=== PATIENT | female | born 1975 | race Two or more races ===

== ENCOUNTER → 2016-12-08 | Outpatient (CLI) | payer OTHER ==
[2016-12-12 16:05] LABS: HPV 16 Not Detected (NOTDET); HPV 18 Not Detected (NOTDET)
== END ==
LOC: MW.CHOBGYN 10:40
PROVIDERS: ATTEND Nurse Practitioner Women's Health
DX: Z12.4 Encounter for screening for malignant neoplasm of cervix (principal)
CPT/HCPCS: 87624; G0145

== ENCOUNTER → 2016-12-10 | Outpatient (CLI) | payer OTHER ==
--- NOTE | 2016-12-23 13:40 | MY ---
EXAMINATION: Bilateral digital mammography utilizing CAD. HISTORY: Screening exam. No comparisons made available. FINDINGS: Bilateral heterogeneously dense breast tissue. No suspicious calcifications, masses or ar chitectural distortions. No pathologic appearing lymph nodes, no abnormal skin thickening or nippl e inversion. CAD highlighted regions appear normal at this time. IMPRESSION: BI-RADS category I - negative mammogram. Continued screening according to ACR-ACS gu idelines suggested. THE FALSE-NEGATIVE RATE OF MAMMOGRAM IS APPROXIMATELY 10%. MANAGEMENT OF A PALPABLE ABNORMALITY MUST BE BASED UPON CLINICAL GROUNDS. SENSITIVITY FOR DETECTION OF ABNORMALITIES IN DENSE BREASTS IS LOW. NOTE: A letter will be sent to the patient regarding findings. [facility] -- [employer] [phone] - FAX [phone]
== END ==
LOC: MW.MAM 09:58
PROVIDERS: ATTEND Nurse Practitioner Women's Health
DX: Z12.31 Encounter for screening mammogram for malignant neoplasm of breast (principal)
CPT/HCPCS: G0202; G0202-26

== ENCOUNTER → 2016-12-15 | Outpatient (CLI) | payer OTHER ==
[2016-12-15 09:08] LABS: CHLORIDE,CL 108 mmol/L (98-110); SODIUM,NA 141 mmol/L (136-146)
== END ==
LOC: MW.CHIM 08:26
PROVIDERS: ATTEND Internal Medicine
DX: R53.83 Other fatigue (principal)
CPT/HCPCS: 36415; 80053; 80061; 84443; 85025

== ENCOUNTER → 2016-12-30 | Outpatient (CLI) | payer OTHER | END | disposition home or self-care (01) | LOC: MW.CHIM 09:15 | PROVIDERS: ATTEND Internal Medicine | DX: R00.2 Palpitations (principal) | CPT/HCPCS: 93005 ==

== ENCOUNTER → 2017-01-20 | Outpatient (CLI) | payer OTHER ==
--- NOTE | 2017-01-21 14:20 | ECHO ---
EXAM DATE: 01/20/17 The echocardiogram report can be seen in this patient's EMR (Electronic Medical Record) in the Reports section. BERTHA
== END | disposition home or self-care (01) ==
LOC: MW.US 12:57
PROVIDERS: ATTEND Internal Medicine
DX: R00.2 Palpitations (principal)
CPT/HCPCS: 93270; 93306

== ENCOUNTER 2018-10-12 07:52 | Inpatient (IN) | payer OTHER ==
[2018-10-12] MEDS ORDERED: Sodium Chloride 0.9% 2.5 ML Syringe FLUSH PRN ×2 (10:29→14:26)
[2018-10-12] MEDS ORDERED: Sodium Chloride 0.9% 10 ML Syringe FLUSH PRN ×2 (10:29→14:26)
[2018-10-12] MEDS ORDERED: Lactated Ringers 1,000 ML IV SCH ×2 (10:30→14:30)
[2018-10-12] MEDS ORDERED: Oxytocin/0.9 % Sodium Chloride 30 UNIT/500 ML BAG IV SCH (10:30)
--- NOTE | 2018-10-12 11:00 | PCM.PREANE ---
Preanesthetic Assessment - Anesthesia/Transfusion/Family Hx Anesthesia History: Prior Anesthesia Without Reaction Family History of Anesthesia Reaction: No Transfusion History: No Prior Transfusion(s) - Review of Systems General: No Symptoms Pulmonary: No Symptoms Cardiovascular: No Symptoms Gastrointestinal: No Symptoms Neurological: No Symptoms Other: Reports: None - Physical Assessment Height: 5 ft 2 in Weight: 80.739 kg ASA Class: 2 Mental Status: Alert & Oriented x3 Airway Class: Mallampati = 2 Dentition: Reports: Normal Dentition Thyro-Mental Finger Breadths: 3 Mouth Opening Finger Breadths: 3 ROM/Head Extension: Full Lungs: Clear to Auscultation, Normal Respiratory Effort Cardiovascular: Regular Rate, Regular Rhythm - Allergies Allergies/Adverse Reactions: Allergies Allergy/AdvReac Type Severity Reaction Status Date / Time animal dander Allergy Sneezing Verified 10/11/18 09:27 latex Allergy "latex Verified 10/11/18 09:27 sensitive" pollen extracts Allergy Sneezing Verified 10/11/18 09:27 - Acknowledgements Anesthesia Type Planned: General Anesthesia, Spinal (Duramorph) Pt an Appropriate Candidate for the Planned Anesthesia: Yes Alternatives and Risks of Anesthesia Discussed w Pt/Guardian: Yes Pt/Guardian Understands and Agrees with Anesthesia Plan: Yes PreAnesthesia Questionnaire HEENT History: Reports: None Cardiovascular History: Reports: Arrhythmia, Other (See Below) Other Cardiovascular History: patient states "I have an extra heartbeat sometimes." Pt states she had a holter monitor test done for 30 days that yielded no additional interventions or Rx Respiratory History: Reports: None Gastrointestinal History: Reports: GERD Genitourinary History: Reports: None COMM[employer] History: Reports: : 2 Para: 1 LMP (Approximate): Musculoskeletal History: Reports: None Neurological History: Reports: None Psychiatric History: Reports: None Endocrine/Metabolic History: Reports: Obesity/BMI 30+ Hematologic History: Reports: None Immunologic History: Reports: None Oncologic (Cancer) History: Reports: None Dermatologic History: Reports: None - Infectious Disease History Infectious Disease History: Reports: None - Past Surgical History Cardiovascular Surgical History: Reports: None Female Surgical History: Reports: Section - SUBSTANCE USE Smoking Status *Q: Never Smoker Recreational Drug Use History: Yes - HOME MEDS Home Medications: Home Meds Iron 67 mg PO DAILY 10/11/18 [History] PNV95/Ferrous Fumarate/FA [ Vitamin Tablet] 1 tab PO DAILY 10/11/18 [ History] - CURRENT (IN HOUSE) MEDS Current Meds: Current Medications Citric Acid/Sodium Citrate (Bicitra Solution) 30 ml PO ONETIME ONE Stop: 10/12/18 12:01 Oxytocin/Sodium Chloride (Oxytocin 30 Unit/500 Ml-Ns) 30 unit in 500 mls @ 250 mls/hr IV TITRATE BHARAT Lactated Ringer's (Ringers, Lactated) 1,000 mls @ 500 mls/hr IV BOLUS BHARAT Cefazolin Sodium/Dextrose 2 gm (/ Premix) 50 mls @ 100 mls/hr IV ONETIME ONE Stop: 10/12/18 12:29 Sodium Chloride (Saline Flush) 10 ml FLUSH ASDIRECTED PRN PRN Reason: Keep Vein Open Sodium Chloride (Saline Flush) 2.5 ml FLUSH ASDIRECTED PRN PRN Reason: Keep Vein Open
[2018-10-12] MEDS ORDERED: Citric Acid/Sodium Citrate Solution 30 ML Cup PO ONE (12:00)
[2018-10-12] MEDS ORDERED: ceFAZolin 2 GM in Premix Bag 1 BAG IV ONE (12:00)
[2018-10-12] MEDS ORDERED: Morphine PF 10 MG/10 ML SDV ONE (12:37)
[2018-10-12] MEDS ORDERED: ceFAZolin/Dextrose,Iso-Osmotic 2 GM/50 ML Duplex Bag IV ONE (13:25)
[2018-10-12] MEDS ORDERED: Oxytocin 10 Units/1 ML SDV ONE (13:44)
[2018-10-12] MEDS ORDERED: Phenylephrine/Normal Saline 100 MCG/ML 10 ML Syringe ONE (13:55)
[2018-10-12] MEDS ORDERED: Dexamethasone 4 MG/ML 5 ML MDV ONE (13:59)
[2018-10-12] MEDS ORDERED: Ondansetron 4 MG/2 ML SDV ONE (13:59)
[2018-10-12] MEDS ORDERED: Ketorolac 30 MG/ML SDV ONE (13:59)
[2018-10-12] MEDS ORDERED: diphenhydrAMINE 50 MG/ML SDV IVPUSH PRN ×2 (14:12→14:26)
[2018-10-12] MEDS ORDERED: Naloxone 0.4 MG/ML Syringe IVPUSH PRN (14:12)
[2018-10-12] MEDS ORDERED: Ondansetron 4 MG/2 ML SDV IVPUSH PRN (14:26)
[2018-10-12] MEDS ORDERED: Acetaminophen/oxyCODONE 325-5 MG Tab PO PRN ×2 (14:26)
[2018-10-12] MEDS ORDERED: Ibuprofen 800 MG Tab PO PRN (14:26)
[2018-10-12] MEDS ORDERED: Lanolin 100% Cream 7 GM Tube TOP PRN (14:26)
[2018-10-12] MEDS ORDERED: Bisacodyl 10 MG Supp RECTAL PRN (14:26)
--- NOTE | 2018-10-12 14:33 | PCM.OPNOTE ---
- General Post-Op/Procedure Note Date of Surgery/Procedure: 10/12/18 Operative Procedure(s): Repeat section Findings: Male , Wt 3720grans, Apgars 8 and 9. Grossly normal placenta with 3 vessel cord. Normal appearing uterus, tubes and ovaries. Normal pelvis Pre Op Diagnosis: 38.6 weeks. Early labor. Previous , declined Post-Op Diagnosis: Same Anesthesia Technique: Spinal Primary Surgeon: Leona Swift Fluid Replacement, Intraop: 1,800 Output, Urine Amount: 150 EBL in mLs: 600 Complications: None Condition: Good
--- NOTE | 2018-10-12 14:49 | PCM.POSTAN ---
POST ANESTHESIA ASSESSMENT - MENTAL STATUS Mental Status: Alert, Oriented - RESPIRATORY Respiratory Status: Respiratory Rate WNL, Airway Patent, O2 Saturation Stable - CARDIOVASCULAR CV Status: Pulse Rate WNL, Blood Pressure Stable - GASTROINTESTINAL GI Status: No Symptoms - POST OP HYDRATION Hydration Status: Adequate & Stable
--- NOTE | 2018-10-12 17:12 | OR ---
SURGEON: Leona Swift MD DATE OF PROCEDURE: 10/12/2018 PREOPERATIVE DIAGNOSES: 1. Term at 38 weeks and 6 days gestation. 2. Spontaneous labor. 3. Prior section, declined vaginal after caesarean section. POSTOPERATIVE DIAGNOSES: 1. Term at 38 weeks and 6 days gestation. 2. Spontaneous labor. 3. Prior section, declined vaginal after caesarean section. 4. Delivered. PROCEDURE: Repeat low-transverse section via Pfannenstiel. ANESTHESIA: Spinal. ESTIMATED BLOOD LOSS: 600 mL. IV FLUIDS: 1800 mL of crystalloid. URINE OUTPUT: 150 mL clear at the end of the procedure. COMPLICATIONS: None. CONDITION: Stable to recovery room. FINDINGS: Male infant, clear amniotic fluid, no nuchal cord. Weight 3720 g, scores of 8 and 9 at 1 and 5 minutes respectively. Grossly normal-looking uterus, tubes, and ovaries. Grossly normal placenta with three-vessel cord. Minimal pelvic adhesions visualized. INDICATION: Vale is a 43-year-old G2, P1-0-0-1 who was admitted today in early spontaneous labor. The patient has a history of one previous section and had declined a trial of labor after section, so we proceeded with a repeat . She was 3 cm dilated, 100% effaced with a bulging membrane with category 1 strip. DESCRIPTION OF PROCEDURE: The patient was taken to the operating room where spinal anesthesia was performed and found to be adequate. She received 2 g of Ancef. SCDs were in place. She was then prepped and draped in the usual sterile fashion in dorsal supine position with a leftward tilt. An appropriate time-out was held. A Pfannenstiel skin incision was made along her old incision and was carried through to the underlying fascia with the Bovie. The fascia was then scored in the midline and the incision was extended laterally with the Bovie. The superior aspect of the fascial incision was grasped with Óscar clamps, elevated, and underlying rectus muscles were dissected off with the Bovie. Attention was then turned to the inferior aspect of the incision, which in similar fashion was grasped and tented up with Óscar clamps, and the rectus muscle was dissected off with the Bovie. The rectus muscle was then in the midline carefully until the parietal peritoneum was reached. This was then entered bluntly and a careful digital sweep underneath the parietal peritoneum revealed no adhesions. The incision was then extended upwards and downwards with good visualization of the bladder and other organs by both blunt and sharp dissection. It was then further extended laterally by stretching. An Mendel O retractor was then inserted into the abdominal cavity. The vesicouterine peritoneum was identified, picked up, and entered sharply with Metzenbaum scissors, and then extended laterally creating a bladder flap digitally. The lower uterine segment was then incised in a transverse fashion with the scalpel and extended upwards and downwards bluntly. The infant's head was then delivered atraumatically followed by the rest of the body. The baby was vigorous and cried spontaneously at . The cord was double clamped and cut, and the infant was handed over to the awaiting heat treating operator, Dr. Lowry. Cord blood was obtained. Cord blood collection for stem cell bank was done according to the artist's manager's instructions. Once this was completed, the placenta was then delivered spontaneously via massage. The uterus was cleaned of all clots and debris. The hysterotomy was then repaired in two layers using 0 Vicryl. The first layer was repaired in a running locked fashion and second imbricating layer was performed to obtain excellent hemostasis. The cord was cleared of all clots and debris. The tubes and ovaries were then inspected. Hemostasis was evident along the hysterotomy site. The Mendel O retractor was then removed. The peritoneal edges were identified and this layer was then closed with 2-0 Vicryl in a running fashion. The subfascial layer was made hemostatic with the Bovie after the muscular layer had been reapproximated with mattress sutures. The fascia was then approximated with 0 Vicryl in a running fashion. The subcuticular layer was made hemostatic with the Bovie. The skin was closed using subcuticular stitches with 4-0 Monocryl suture. The patient tolerated the procedure well. Sponge, instrument, and needle counts were reported as correct at the end of the procedure. The patient was taken in a stable condition to the recovery room and baby to the nursery in a stable condition. DWAINUMERMIASV / MELISSA /[id number] BERTHA
[2018-10-12] MEDS: Ketorolac 30 MG/ML SDV IVPUSH SCH (20:13)
[2018-10-12] MEDS: Docusate Sodium 100 MG Cap PO SCH (20:15)
[2018-10-13] MEDS: Ketorolac 30 MG/ML SDV IVPUSH SCH ×3 (02:49→14:33)
--- NOTE | 2018-10-13 06:16 | PCM48HPAN ---
Post Anesthesia Note - EVALUATION WITHIN 48HRS OF ANESTHETIC Vital Signs in Normal Range: Yes Patient Participated in Evaluation: Yes Respiratory Function Stable: Yes Airway Patent: Yes Cardiovascular Function Stable: Yes Hydration Status Stable: Yes Pain Control Satisfactory: Yes Nausea and Vomiting Control Satisfactory: Yes Mental Status Recovered: Yes Resp Rate: 16 Temperature: 36.3 C - COMMENTS/OBSERVATIONS Free Text/Narrative:: The patient has no complaints at this time.
--- NOTE | 2018-10-13 08:06 | PCM.PNPP ---
<Park Restrepo - Last Filed: 10/13/18 08:03> - General Info Date of Service: 10/13/18 Functional Status: Reports: Pain Controlled, Tolerating Diet, Ambulating, Other (catheter removed this am and has not voided yet) - Review of Systems General: Denies: Fever, Weakness, Fatigue Pulmonary: Denies: Shortness of Breath, Pleuritic Chest Pain, Cough Cardiovascular: Denies: Chest Pain, Palpitations, Dyspnea on Exertion Gastrointestinal: Denies: Abdominal Pain Genitourinary: Denies: Dysuria - General Info Date of Service: 10/13/18 - Patient Data Vital Signs - Most Recent: Last Vital Signs Temp 36.3 C 10/13/18 06:16 Pulse 61 10/13/18 04:10 Resp 16 10/13/18 06:16 BP 89/51 L 10/13/18 04:10 Pulse Ox 94 L 10/13/18 06:00 Weight - Most Recent: 178 lb I&O - Last 24 Hours: Intake & Output 10/12/18 10/13/18 10/13/18 22:59 06:59 14:59 Intake Total 2552 1200 Output Total 175 1600 Balance 2377 -400 Lab Results - Last 24 Hours: Laboratory Results - last 24 hr 10/12/18 10/12/18 10/12/18 Range/Units 10:44 10:44 15:07 WBC 12.69 H (4.0-11.0) K/uL RBC 4.24 L (4.30-5.90) M/uL Hgb 13.2 (12.0-16.0) g/dL Hct 38.7 (36.0-46.0) % MCV 91.3 (80.0-98.0) fL MCH 31.1 (27.0-32.0) pg MCHC 34.1 (31.0-37.0) g/dL RDW Std Deviation 45.1 (28.0-62.0) fl RDW Coeff of Amanda 14 (11.0-15.0) % Plt Count 161 (150-400) K/uL MPV 11.50 (7.40-12.00) fL Nucleated RBC % 0.0 /100WBC Nucleated RBCs # 0 K/uL Blood Type O NEGATIVE Antibody Screen NEGATIVE Screen NEGATIVE (NEGATIVE) RhIG Candidate? YES Rhogam Indicated YES, BABY RH POS H 10/13/18 Range/Units 05:25 WBC (4.0-11.0) K/uL RBC (4.30-5.90) M/uL Hgb 10.1 L (12.0-16.0) g/dL Hct 30.1 L (36.0-46.0) % MCV (80.0-98.0) fL MCH (27.0-32.0) pg MCHC (31.0-37.0) g/dL RDW Std Deviation (28.0-62.0) fl RDW Coeff of Amanda (11.0-15.0) % Plt Count (150-400) K/uL MPV (7.40-12.00) fL Nucleated RBC % /100WBC Nucleated RBCs # K/uL Blood Type Antibody Screen Screen (NEGATIVE) RhIG Candidate? Rhogam Indicated Med Orders - Current: Current Medications Bisacodyl (Dulcolax) 10 mg RECTAL ONETIME PRN PRN Reason: Constipation Diphenhydramine HCl (Benadryl) 25 mg IVPUSH Q4H PRN PRN Reason: Itching Stop: 10/13/18 14:13 Diphenhydramine HCl (Benadryl) 25 mg IVPUSH Q6H PRN PRN Reason: Itching or Nausea Docusate Sodium (Colace) 100 mg PO BID [facility] Last Admin: 10/12/18 20:15 Dose: 100 mg Emollient Ointment (Lansinoh Hpa) 0 gm TOP ASDIRECTED PRN PRN Reason: Sore Nipples Lactated Ringer's (Ringers, Lactated) 1,000 mls @ 125 mls/hr IV ASDIRECTED [facility] Last Admin: 10/12/18 15:45 Dose: 125 mls/hr Ibuprofen (Motrin) 800 mg PO Q8H PRN PRN Reason: mild pain or fever Ketorolac Tromethamine (Toradol) 30 mg IVPUSH Q6H [facility] Stop: 10/13/18 14:31 Last Admin: 10/13/18 02:49 Dose: 30 mg Naloxone HCl (Narcan) 0.1 mg IVPUSH ONETIME PRN PRN Reason: Respiratory Depression Stop: 10/13/18 14:14 Ondansetron HCl (Zofran) 4 mg IVPUSH Q4H PRN PRN Reason: Nausea/Vomiting Oxycodone/Acetaminophen (Percocet 325-5 Mg) 1 tab PO Q4H PRN PRN Reason: Pain (moderate 4-6) Oxycodone/Acetaminophen (Percocet 325-5 Mg) 2 tab PO Q4H PRN PRN Reason: Pain (moderate 4-6) Sodium Chloride (Saline Flush) 10 ml FLUSH ASDIRECTED PRN PRN Reason: Keep Vein Open Sodium Chloride (Saline Flush) 2.5 ml FLUSH ASDIRECTED PRN PRN Reason: Keep Vein Open Discontinued Medications Cefazolin Sodium/Dextrose (Ancef) Confirm Administered Dose 2 gm IV .STK-MED ONE Stop: 10/12/18 13:26 Citric Acid/Sodium Citrate (Bicitra Solution) 30 ml PO ONETIME ONE Stop: 10/12/18 12:01 Last Admin: 10/12/18 12:53 Dose: 30 ml Dexamethasone (Dexamethasone) Confirm Administered Dose 20 mg .ROUTE .STK-MED ONE Stop: 10/12/18 14:00 Oxytocin/Sodium Chloride (Oxytocin 30 Unit/500 Ml-Ns) 30 unit in 500 mls @ 250 mls/hr IV TITRATE BHARAT Lactated Ringer's (Ringers, Lactated) 1,000 mls @ 500 mls/hr IV BOLUS BHARAT Last Admin: 10/12/18 11:12 Dose: 999 mls/hr Cefazolin Sodium/Dextrose 2 gm (/ Premix) 50 mls @ 100 mls/hr IV ONETIME ONE Stop: 10/12/18 12:29 Acetaminophen (Ofirmev) Confirm Administered Dose 100 mls @ as directed IV .STK- MED ONE Stop: 10/12/18 13:26 Ketorolac Tromethamine (Toradol) Confirm Administered Dose 30 mg .ROUTE .STK- MED ONE Stop: 10/12/18 14:00 Morphine Sulfate (Duramorph Pf) Confirm Administered Dose 10 mg .ROUTE .STK-MED ONE Stop: 10/12/18 12:38 Ondansetron HCl (Zofran) Confirm Administered Dose 4 mg .ROUTE .STK-MED ONE Stop: 10/12/18 14:00 Oxytocin (Pitocin) Confirm Administered Dose 20 unit .ROUTE .STK-MED ONE Stop: 10/12/18 13:45 Phenylephrine HCl (Phenylephrine In Ns 100 Mcg/Ml) Confirm Administered Dose 1 mg .ROUTE .STK-MED ONE Stop: 10/12/18 13:56 Sodium Chloride (Saline Flush) 10 ml FLUSH ASDIRECTED PRN PRN Reason: Keep Vein Open Sodium Chloride (Saline Flush) 2.5 ml FLUSH ASDIRECTED PRN PRN Reason: Keep Vein Open - Interaction Disposition, : Lyndon in Room with Family Infant Interaction: Holding Infant Feeding: Breastfed ; Nursed Well Support Person: - Recovery Exam Fundal Tone: Firm Fundal Level: At Umbilicus Fundal Placement: Midline Lochia Amount: Scant Lochia Color: Rubra/Red Perineum Description: Intact, Minimal Bruising/Swelling Episiotomy/Laceration: None Bladder Status: Indwelling Catheter in Place Urinary Elimination: Indwelling Catheter - Exam General: Alert, Oriented Neck: Supple Lungs: Clear to Auscultation, Normal Respiratory Effort Cardiovascular: Regular Rate, Regular Rhythm GI/Abdominal Exam: Normal Bowel Sounds, Soft, Non-Tender, No Mass Extremities: Normal Inspection, Non-Tender, Normal Capillary Refill, Pedal Edema (trace) Skin: Warm, Dry, Intact - Problem List & Annotations (1) delivery delivered SNOMED Code(s): 550764236 Code(s): O82 - ENCOUNTER FOR DELIVERY WITHOUT INDICATION Status: Acute Current Visit: Yes - Problem List Review Problem List Initiated/Reviewed/Updated: Yes - Assessment Assessment:: POD#1 s/p RLTCS. Minimal pain and lochia. Breast feeding well. Anticipate discharge home tomorrow. - Plan Plan:: Continue routine post-op cares. <Leona Swift - Last Filed: 10/13/18 08:11> - Patient Data Vital Signs - Most Recent: Last Vital Signs Temp 36.3 C 10/13/18 06:16 Pulse 61 10/13/18 04:10 Resp 16 10/13/18 06:16 BP 89/51 L 10/13/18 04:10 Pulse Ox 94 L 10/13/18 06:00 I&O - Last 24 Hours: Intake & Output 10/12/18 10/13/18 10/13/18 22:59 06:59 14:59 Intake Total 2552 1200 Output Total 175 1600 Balance 2377 -400 Lab Results - Last 24 Hours: Laboratory Results - last 24 hr 10/12/18 10/12/18 10/12/18 Range/Units 10:44 10:44 15:07 WBC 12.69 H (4.0-11.0) K/uL RBC 4.24 L (4.30-5.90) M/uL Hgb 13.2 (12.0-16.0) g/dL Hct 38.7 (36.0-46.0) % MCV 91.3 (80.0-98.0) fL MCH 31.1 (27.0-32.0) pg MCHC 34.1 (31.0-37.0) g/dL RDW Std Deviation 45.1 (28.0-62.0) fl RDW Coeff of Amanda 14 (11.0-15.0) % Plt Count 161 (150-400) K/uL MPV 11.50 (7.40-12.00) fL Nucleated RBC % 0.0 /100WBC Nucleated RBCs # 0 K/uL Blood Type O NEGATIVE Antibody Screen NEGATIVE Screen NEGATIVE (NEGATIVE) RhIG Candidate? YES Rhogam Indicated YES, BABY RH POS H 10/13/18 Range/Units 05:25 WBC (4.0-11.0) K/uL RBC (4.30-5.90) M/uL Hgb 10.1 L (12.0-16.0) g/dL Hct 30.1 L (36.0-46.0) % MCV (80.0-98.0) fL MCH (27.0-32.0) pg MCHC (31.0-37.0) g/dL RDW Std Deviation (28.0-62.0) fl RDW Coeff of Amanda (11.0-15.0) % Plt Count (150-400) K/uL MPV (7.40-12.00) fL Nucleated RBC % /100WBC Nucleated RBCs # K/uL Blood Type Antibody Screen Screen (NEGATIVE) RhIG Candidate? Rhogam Indicated Med Orders - Current: Current Medications Bisacodyl (Dulcolax) 10 mg RECTAL ONETIME PRN PRN Reason: Constipation Diphenhydramine HCl (Benadryl) 25 mg IVPUSH Q4H PRN PRN Reason: Itching Stop: 10/13/18 14:13 Diphenhydramine HCl (Benadryl) 25 mg IVPUSH Q6H PRN PRN Reason: Itching or Nausea Docusate Sodium (Colace) 100 mg PO BID [facility] Last Admin: 10/12/18 20:15 Dose: 100 mg Emollient Ointment (Lansinoh Hpa) 0 gm TOP ASDIRECTED PRN PRN Reason: Sore Nipples Lactated Ringer's (Ringers, Lactated) 1,000 mls @ 125 mls/hr IV ASDIRECTED [facility] Last Admin: 10/12/18 15:45 Dose: 125 mls/hr Ibuprofen (Motrin) 800 mg PO Q8H PRN PRN Reason: mild pain or fever Ketorolac Tromethamine (Toradol) 30 mg IVPUSH Q6H [facility] Stop: 10/13/18 14:31 Last Admin: 10/13/18 02:49 Dose: 30 mg Naloxone HCl (Narcan) 0.1 mg IVPUSH ONETIME PRN PRN Reason: Respiratory Depression Stop: 10/13/18 14:14 Ondansetron HCl (Zofran) 4 mg IVPUSH Q4H PRN PRN Reason: Nausea/Vomiting Oxycodone/Acetaminophen (Percocet 325-5 Mg) 1 tab PO Q4H PRN PRN Reason: Pain (moderate 4-6) Oxycodone/Acetaminophen (Percocet 325-5 Mg) 2 tab PO Q4H PRN PRN Reason: Pain (moderate 4-6) Sodium Chloride (Saline Flush) 10 ml FLUSH ASDIRECTED PRN PRN Reason: Keep Vein Open Sodium Chloride (Saline Flush) 2.5 ml FLUSH ASDIRECTED PRN PRN Reason: Keep Vein Open Discontinued Medications Cefazolin Sodium/Dextrose (Ancef) Confirm Administered Dose 2 gm IV .STK-MED ONE Stop: 10/12/18 13:26 Citric Acid/Sodium Citrate (Bicitra Solution) 30 ml PO ONETIME ONE Stop: 10/12/18 12:01 Last Admin: 10/12/18 12:53 Dose: 30 ml Dexamethasone (Dexamethasone) Confirm Administered Dose 20 mg .ROUTE .STK-MED ONE Stop: 10/12/18 14:00 Oxytocin/Sodium Chloride (Oxytocin 30 Unit/500 Ml-Ns) 30 unit in 500 mls @ 250 mls/hr IV TITRATE BHARAT Lactated Ringer's (Ringers, Lactated) 1,000 mls @ 500 mls/hr IV BOLUS BHARAT Last Admin: 10/12/18 11:12 Dose: 999 mls/hr Cefazolin Sodium/Dextrose 2 gm (/ Premix) 50 mls @ 100 mls/hr IV ONETIME ONE Stop: 10/12/18 12:29 Acetaminophen (Ofirmev) Confirm Administered Dose 100 mls @ as directed IV .STK- MED ONE Stop: 10/12/18 13:26 Ketorolac Tromethamine (Toradol) Confirm Administered Dose 30 mg .ROUTE .STK- MED ONE Stop: 10/12/18 14:00 Morphine Sulfate (Duramorph Pf) Confirm Administered Dose 10 mg .ROUTE .STK-MED ONE Stop: 10/12/18 12:38 Ondansetron HCl (Zofran) Confirm Administered Dose 4 mg .ROUTE .STK-MED ONE Stop: 10/12/18 14:00 Oxytocin (Pitocin) Confirm Administered Dose 20 unit .ROUTE .STK-MED ONE Stop: 10/12/18 13:45 Phenylephrine HCl (Phenylephrine In Ns 100 Mcg/Ml) Confirm Administered Dose 1 mg .ROUTE .STK-MED ONE Stop: 10/12/18 13:56 Sodium Chloride (Saline Flush) 10 ml FLUSH ASDIRECTED PRN PRN Reason: Keep Vein Open Sodium Chloride (Saline Flush) 2.5 ml FLUSH ASDIRECTED PRN PRN Reason: Keep Vein Open - My Orders Last 24 Hours: My Active Orders 10/12/18 08:03 Non Stress Test [RC] PER UNIT ROUTINE Up ad Belkis [RC] ASDIRECTED Vaginal Exam [RC] Click to Edit Vital Signs [RC] PER UNIT ROUTINE 10/12/18 10:29 Procedure Site Prep Instruct [RC] ASDIRECTED 10/12/18 10:31 Notify Provider Vital Signs [RC] PRN 10/12/18 14:26 Patient Status [ADT] Routine Ambulate [RC] PER UNIT ROUTINE Communication Order [RC] PER UNIT ROUTINE Communication Order [RC] PER UNIT ROUTINE Communication Order [RC] Per Unit Routine Intake and Output [RC] Q4H May Shower [RC] ASDIRECTED RT Incentive Spirometry [RC] Q2HWA Vital Signs [RC] PER UNIT ROUTINE Acetaminophen/oxyCODONE [Percocet 325-5 MG] 1 tab PO Q4H PRN Acetaminophen/oxyCODONE [Percocet 325-5 MG] 2 tab PO Q4H PRN Bisacodyl [Dulcolax] 10 mg RECTAL ONETIME PRN Ibuprofen [Motrin] 800 mg PO Q8H PRN Lanolin [Lansinoh HPA] See Dose Instructions TOP ASDIRECTED PRN Ondansetron [Zofran] 4 mg IVPUSH Q4H PRN Sodium Chloride 0.9% [Saline Flush] 10 ml FLUSH ASDIRECTED PRN Sodium Chloride 0.9% [Saline Flush] 2.5 ml FLUSH ASDIRECTED PRN diphenhydrAMINE [Benadryl] 25 mg IVPUSH Q6H PRN Abdominal Binder [OM.PC] Routine Assess Lochia [WOMSER] Per Unit Routine Assess Uterine Involution [WOMSER] Per Unit Routine Breast Pump [WOMSER] Per Unit Routine Peripheral IV Discontinue [OM.PC] Routine Saline Lock Insert [OM.PC] Routine Sequential Compression Device [OM.PC] Per Unit Routine Resuscitation Status Routine 10/12/18 14:27 Notify Provider Intake and Out [RC] ASDIRECTED Notify Provider Vital Signs [RC] ASDIRECTED 10/12/18 14:30 Ketorolac [Toradol] 30 mg IVPUSH Q6H Lactated Ringers [Ringers, Lactated] 1,000 ml IV ASDIRECTED 10/12/18 21:00 Docusate Sodium [Colace] 100 mg PO BID 10/12/18 Dinner Regular Diet [DIET] - Assessment Assessment:: Patient seen, agree with above - Plan Plan:: Aim for discharge tomorrow
[2018-10-13] MEDS: Docusate Sodium 100 MG Cap PO SCH ×2 (08:34→20:16)
--- NOTE | 2018-10-14 07:59 | PCM.PNPP ---
<Park Restrepo - Last Filed: 10/14/18 07:58> - General Info Date of Service: 10/14/18 Functional Status: Reports: Pain Controlled, Tolerating Diet, Ambulating, Urinating - Review of Systems General: Denies: Fever, Weakness, Fatigue Pulmonary: Denies: Shortness of Breath, Pleuritic Chest Pain, Cough Cardiovascular: Denies: Chest Pain, Palpitations, Dyspnea on Exertion Gastrointestinal: Denies: Abdominal Pain Genitourinary: Denies: Dysuria - General Info Date of Service: 10/14/18 - Patient Data Vital Signs - Most Recent: Last Vital Signs Temp 36.4 C 10/14/18 04:06 Pulse 70 10/14/18 04:06 Resp 16 10/14/18 04:06 BP 115/60 10/14/18 04:06 Pulse Ox 96 10/14/18 04:06 Weight - Most Recent: 178 lb Med Orders - Current: Current Medications Bisacodyl (Dulcolax) 10 mg RECTAL ONETIME PRN PRN Reason: Constipation Diphenhydramine HCl (Benadryl) 25 mg IVPUSH Q6H PRN PRN Reason: Itching or Nausea Docusate Sodium (Colace) 100 mg PO BID [facility] Last Admin: 10/13/18 20:16 Dose: 100 mg Emollient Ointment (Lansinoh Hpa) 0 gm TOP ASDIRECTED PRN PRN Reason: Sore Nipples Lactated Ringer's (Ringers, Lactated) 1,000 mls @ 125 mls/hr IV ASDIRECTED [facility] Last Admin: 10/12/18 15:45 Dose: 125 mls/hr Ibuprofen (Motrin) 800 mg PO Q8H PRN PRN Reason: mild pain or fever Last Admin: 10/14/18 03:29 Dose: 800 mg Ondansetron HCl (Zofran) 4 mg IVPUSH Q4H PRN PRN Reason: Nausea/Vomiting Oxycodone/Acetaminophen (Percocet 325-5 Mg) 1 tab PO Q4H PRN PRN Reason: Pain (moderate 4-6) Oxycodone/Acetaminophen (Percocet 325-5 Mg) 2 tab PO Q4H PRN PRN Reason: Pain (moderate 4-6) Last Admin: 10/13/18 20:16 Dose: 2 tab Sodium Chloride (Saline Flush) 10 ml FLUSH ASDIRECTED PRN PRN Reason: Keep Vein Open Sodium Chloride (Saline Flush) 2.5 ml FLUSH ASDIRECTED PRN PRN Reason: Keep Vein Open Discontinued Medications Cefazolin Sodium/Dextrose (Ancef) Confirm Administered Dose 2 gm IV .STK-MED ONE Stop: 10/12/18 13:26 Citric Acid/Sodium Citrate (Bicitra Solution) 30 ml PO ONETIME ONE Stop: 10/12/18 12:01 Last Admin: 10/12/18 12:53 Dose: 30 ml Dexamethasone (Dexamethasone) Confirm Administered Dose 20 mg .ROUTE .STK-MED ONE Stop: 10/12/18 14:00 Diphenhydramine HCl (Benadryl) 25 mg IVPUSH Q4H PRN PRN Reason: Itching Stop: 10/13/18 14:13 Oxytocin/Sodium Chloride (Oxytocin 30 Unit/500 Ml-Ns) 30 unit in 500 mls @ 250 mls/hr IV TITRATE [facility] Lactated Ringer's (Ringers, Lactated) 1,000 mls @ 500 mls/hr IV BOLUS [facility] Last Admin: 10/12/18 11:12 Dose: 999 mls/hr Cefazolin Sodium/Dextrose 2 gm (/ Premix) 50 mls @ 100 mls/hr IV ONETIME ONE Stop: 10/12/18 12:29 Acetaminophen (Ofirmev) Confirm Administered Dose 100 mls @ as directed IV .STK- MED ONE Stop: 10/12/18 13:26 Ketorolac Tromethamine (Toradol) Confirm Administered Dose 30 mg .ROUTE .STK- MED ONE Stop: 10/12/18 14:00 Ketorolac Tromethamine (Toradol) 30 mg IVPUSH Q6H [facility] Stop: 10/13/18 14:31 Last Admin: 10/13/18 14:33 Dose: 30 mg Morphine Sulfate (Duramorph Pf) Confirm Administered Dose 10 mg .ROUTE .STK-MED ONE Stop: 10/12/18 12:38 Naloxone HCl (Narcan) 0.1 mg IVPUSH ONETIME PRN PRN Reason: Respiratory Depression Stop: 10/13/18 14:14 Ondansetron HCl (Zofran) Confirm Administered Dose 4 mg .ROUTE .STK-MED ONE Stop: 10/12/18 14:00 Oxytocin (Pitocin) Confirm Administered Dose 20 unit .ROUTE .STK-MED ONE Stop: 10/12/18 13:45 Phenylephrine HCl (Phenylephrine In Ns 100 Mcg/Ml) Confirm Administered Dose 1 mg .ROUTE .STK-MED ONE Stop: 10/12/18 13:56 Sodium Chloride (Saline Flush) 10 ml FLUSH ASDIRECTED PRN PRN Reason: Keep Vein Open Sodium Chloride (Saline Flush) 2.5 ml FLUSH ASDIRECTED PRN PRN Reason: Keep Vein Open - Infant Interaction Disposition, : in Room with Family Infant Interaction: Holding Infant Infant Feeding: Breastfed ; Nursed Well Support Person: - Recovery Exam Fundal Tone: Firm Fundal Level: 1 Fingerbreadths Below Umbilicus Fundal Placement: Midline Lochia Amount: Scant Lochia Color: Rubra/Red Perineum Description: Intact, Minimal Bruising/Swelling Episiotomy/Laceration: None Bladder Status: Nonpalpable, Voiding Urinary Elimination: Voided - Exam General: Alert, Oriented Neck: Supple Lungs: Clear to Auscultation, Normal Respiratory Effort Cardiovascular: Regular Rate, Regular Rhythm GI/Abdominal Exam: Normal Bowel Sounds, Soft, Non-Tender, No Distention, Pelvis Stable Extremities: Normal Inspection, Non-Tender, Normal Capillary Refill, Pedal Edema (trace) Skin: Warm, Dry, Intact - Problem List & Annotations (1) delivery delivered SNOMED Code(s): 135063294 Code(s): O82 - ENCOUNTER FOR DELIVERY WITHOUT INDICATION Status: Acute Current Visit: Yes - Problem List Review Problem List Initiated/Reviewed/Updated: Yes - Assessment Assessment:: POD#2 s/p RLTCS. Minimal pain and lochia. Breast feeding well. Discharge home today. - Plan Plan:: Discharge home today. Pelvic rest for 6 weeks. Rx for Percocet to use as needed for pain. Instructed patient to call if she develops fever greater than 101 or bleeding though a large pad an hour. No lifting greater than 10lbs for 6 weeks. F/U with [facility] in 2 and 6 weeks <AdLeona palacio - Last Filed: 10/14/18 08:38> - Patient Data Vital Signs - Most Recent: Last Vital Signs Temp 36.4 C 10/14/18 04:06 Pulse 70 10/14/18 04:06 Resp 16 10/14/18 04:06 BP 115/60 10/14/18 04:06 Pulse Ox 96 10/14/18 04:06 Med Orders - Current: Current Medications Bisacodyl (Dulcolax) 10 mg RECTAL ONETIME PRN PRN Reason: Constipation Diphenhydramine HCl (Benadryl) 25 mg IVPUSH Q6H PRN PRN Reason: Itching or Nausea Docusate Sodium (Colace) 100 mg PO BID [facility] Last Admin: 10/13/18 20:16 Dose: 100 mg Emollient Ointment (Lansinoh Hpa) 0 gm TOP ASDIRECTED PRN PRN Reason: Sore Nipples Lactated Ringer's (Ringers, Lactated) 1,000 mls @ 125 mls/hr IV ASDIRECTED [facility] Last Admin: 10/12/18 15:45 Dose: 125 mls/hr Ibuprofen (Motrin) 800 mg PO Q8H PRN PRN Reason: mild pain or fever Last Admin: 10/14/18 03:29 Dose: 800 mg Ondansetron HCl (Zofran) 4 mg IVPUSH Q4H PRN PRN Reason: Nausea/Vomiting Oxycodone/Acetaminophen (Percocet 325-5 Mg) 1 tab PO Q4H PRN PRN Reason: Pain (moderate 4-6) Oxycodone/Acetaminophen (Percocet 325-5 Mg) 2 tab PO Q4H PRN PRN Reason: Pain (moderate 4-6) Last Admin: 10/13/18 20:16 Dose: 2 tab Sodium Chloride (Saline Flush) 10 ml FLUSH ASDIRECTED PRN PRN Reason: Keep Vein Open Sodium Chloride (Saline Flush) 2.5 ml FLUSH ASDIRECTED PRN PRN Reason: Keep Vein Open Discontinued Medications Cefazolin Sodium/Dextrose (Ancef) Confirm Administered Dose 2 gm IV .STK-MED ONE Stop: 10/12/18 13:26 Citric Acid/Sodium Citrate (Bicitra Solution) 30 ml PO ONETIME ONE Stop: 10/12/18 12:01 Last Admin: 10/12/18 12:53 Dose: 30 ml Dexamethasone (Dexamethasone) Confirm Administered Dose 20 mg .ROUTE .STK-MED ONE Stop: 10/12/18 14:00 Diphenhydramine HCl (Benadryl) 25 mg IVPUSH Q4H PRN PRN Reason: Itching Stop: 10/13/18 14:13 Oxytocin/Sodium Chloride (Oxytocin 30 Unit/500 Ml-Ns) 30 unit in 500 mls @ 250 mls/hr IV TITRATE [facility] Lactated Ringer's (Ringers, Lactated) 1,000 mls @ 500 mls/hr IV BOLUS [facility] Last Admin: 10/12/18 11:12 Dose: 999 mls/hr Cefazolin Sodium/Dextrose 2 gm (/ Premix) 50 mls @ 100 mls/hr IV ONETIME ONE Stop: 10/12/18 12:29 Acetaminophen (Ofirmev) Confirm Administered Dose 100 mls @ as directed IV .STK- MED ONE Stop: 10/12/18 13:26 Ketorolac Tromethamine (Toradol) Confirm Administered Dose 30 mg .ROUTE .STK- MED ONE Stop: 10/12/18 14:00 Ketorolac Tromethamine (Toradol) 30 mg IVPUSH Q6H [facility] Stop: 10/13/18 14:31 Last Admin: 10/13/18 14:33 Dose: 30 mg Morphine Sulfate (Duramorph Pf) Confirm Administered Dose 10 mg .ROUTE .STK-MED ONE Stop: 10/12/18 12:38 Naloxone HCl (Narcan) 0.1 mg IVPUSH ONETIME PRN PRN Reason: Respiratory Depression Stop: 10/13/18 14:14 Ondansetron HCl (Zofran) Confirm Administered Dose 4 mg .ROUTE .STK-MED ONE Stop: 10/12/18 14:00 Oxytocin (Pitocin) Confirm Administered Dose 20 unit .ROUTE .STK-MED ONE Stop: 10/12/18 13:45 Phenylephrine HCl (Phenylephrine In Ns 100 Mcg/Ml) Confirm Administered Dose 1 mg .ROUTE .STK-MED ONE Stop: 10/12/18 13:56 Sodium Chloride (Saline Flush) 10 ml FLUSH ASDIRECTED PRN PRN Reason: Keep Vein Open Sodium Chloride (Saline Flush) 2.5 ml FLUSH ASDIRECTED PRN PRN Reason: Keep Vein Open - Assessment Assessment:: Patient seen and I agree with above note - Plan Plan:: Discharge instructions reviewed
[2018-10-14] MEDS: Docusate Sodium 100 MG Cap PO SCH (10:54)
== END 2018-10-14 13:30 | disposition home or self-care (01) | DRG 788 ==
LOC: MW.OBCHECK 07:52 → MW.OB 07:57 → MW.OBCHECK 10:53 → MW.OB 14:05
PROVIDERS: ADMIT Obstetrics & Gynecology; ATTEND Obstetrics & Gynecology
PROC: 10D00Z1 Extraction of Products of Conception, Low, Open Approach (ICD-10-PCS; principal; 2018-10-12)
PROC: 6A550ZT Pheresis of Cord Blood Stem Cells, Single (ICD-10-PCS; 2018-10-12)
DX: O34.211 Maternal care for low transverse scar from previous cesarean delivery (principal); Z3A.38 38 weeks gestation of pregnancy; Z37.0 Single live birth
CPT/HCPCS: 36415; 36430; 51702; 59025; 85014; 85018; 85027; 85460; 86850; 86900; 86901; A9270-GY; J0131; J0690; J1100; J1885; J2270; J2370; J2405; J2590; J2792; J7120